=== PATIENT | female | born 1940 | race Caucasian/White ===

== ENCOUNTER 2018-03-16 08:56 | Day surgery (SDC) | payer MEDICARE, OTHER ==
[~2018-03-16 08:56] MED LIST: Acetaminophen TAB* 325 MG PO PRN; Buffered Lidocaine 0.9% SYRIN* 5 ML/SYR SYRINGE INTRADERM ONE
[2018-03-16] MEDS ORDERED: Neomycin/Polymy/Dex OPTH.SUSP* MAXITROL 0.1% 5 ML ONE (09:04)
[2018-03-16] MEDS ORDERED: Cyclopentolate 1% OPTH.SOL* 2 ML BTL ONE (09:04)
[2018-03-16] MEDS ORDERED: Proparacaine 0.5% OPHTH.SOL* 15 ML BTL ONE (09:04)
[2018-03-16] MEDS ORDERED: Lidocaine 1% MPF* 2 ML VIAL ONE (09:04)
[2018-03-16] MEDS ORDERED: acetaZOLAMIDE TAB* 250 MG ONE (09:04)
[2018-03-16] MEDS ORDERED: Lidocaine 2% EPI 1:200000 MPF*10-20 ML VIAL ONE (09:04)
[2018-03-16] MEDS ORDERED: Phenylephrine 2.5% OPTH.SOL* 2 ML BTL ONE (09:04)
[2018-03-16] MEDS ORDERED: Ketorolac 0.5% OPHTH (NF) 0.5 % 5 ML BTL ONE (09:04)
[2018-03-16] MEDS ORDERED: Povidone Iodine 5% OPTH* 30 ML BTL ONE (09:04)
[2018-03-16] MEDS ORDERED: fentaNYL* 50 MCG/ML 2 ML VIAL (100 MCG VIAL) ONE (09:42)
[2018-03-16] MEDS ORDERED: Midazolam* 1 MG/ML 5 ML VIAL (5 MG) ONE (09:42)
[2018-03-16 11:55] VITALS: BP 92/56
--- NOTE | 2018-03-16 12:17 | OP ---
DATE OF OPERATION: 03/16/2018. DATE OF : 1940. SURGEON: Matt Casanova M.D. PREOPERATIVE DIAGNOSIS: Cataract left eye POSTOPERATIVE DIAGNOSIS: Cataract left eye. OPERATIVE PROCEDURE: Extracapsular cataract extraction with intraocular lens implant left eye. PROCEDURE: The patient was brought to the operating room after being given 1/2% Alcaine with epineph rine drops in the preoperative area. The eye was prepped and draped in the usual sterile fashion. S terile drape and eyelid speculum were placed. Again, topical 1/2% Alcaine with epinephrine was given . A paracentesis incision was made at the 3 o'clock position with the No.75 blade. Clear cornea inc ision 2.2 x 2.2-mm was created at the 6 o'clock position starting at the anterior limbus using the 2. 2-mm keratome. The anterior chamber was irrigated with 0.4 mL of 1% non-preservative intracameral li docaine and filled with DisCoVisc. A capsulorrhexis was completed using the cystotome and the Utrata forceps. Hydrodissection was performed with balanced salt solution. The lens nucleus was removed wi th the Phacoemulsification handpiece without incident. Cortex was removed with the irrigation-aspira tion handpiece. The capsular bag was re-inflated using DisCoVisc and an [id number] 22 implant was insert ed with the shooter. The pupil was very small prior to capsulorrhexis. A Malyugin ring was placed a nd removed after insertion of the lens. The irrigation-aspiration handpiece was used to remove all r esidual DisCoVisc. The eye was refilled with balanced salt solution and the wound checked and found to be watertight. Topical Maxitrol drops were given. Indication for complex cataract surgery: Pupil abnormalities requiring iris pupil dilation device. [id number]/[facility] #: [id number]
== END 2018-03-16 11:56 | disposition home or self-care (01) ==
LOC: OREAST 08:56
PROVIDERS: ATTEND Specialist
DX: H25.812 Combined forms of age-related cataract, left eye (principal); H21.562 Pupillary abnormality, left eye; H40.033 Anatomical narrow angle, bilateral; H50.012 Monocular esotropia, left eye; Z87.891 Personal history of nicotine dependence; G43.809 Other migraine, not intractable, without status migrainosus
CPT/HCPCS: A9270-GY; J2250; J3010; V2632

== ENCOUNTER 2018-03-23 06:22 | Day surgery (SDC) | payer MEDICARE, OTHER ==
[2018-03-23] MEDS ORDERED: fentaNYL* 50 MCG/ML 2 ML VIAL (100 MCG VIAL) ONE (07:22)
[2018-03-23] MEDS ORDERED: Midazolam* 1 MG/ML 2 ML VIAL (2 MG) ONE (07:22)
[2018-03-23 08:40] VITALS: BP 103/55
[2018-03-23] MEDS ORDERED: Neomycin/Polymy/Dex OPTH.SUSP* MAXITROL 0.1% 5 ML ONE (12:20)
[2018-03-23] MEDS ORDERED: Lidocaine 2% EPI 1:200000 MPF*10-20 ML VIAL ONE (12:20)
[2018-03-23] MEDS ORDERED: acetaZOLAMIDE TAB* 250 MG ONE (12:20)
[2018-03-23] MEDS ORDERED: Phenylephrine 2.5% OPTH.SOL* 2 ML BTL ONE (12:20)
[2018-03-23] MEDS ORDERED: Ketorolac 0.5% OPHTH (NF) 0.5 % 5 ML BTL ONE (12:20)
[2018-03-23] MEDS ORDERED: Cyclopentolate 1% OPTH.SOL* 2 ML BTL ONE (12:20)
[2018-03-23] MEDS ORDERED: Lidocaine 1% MPF* 2 ML VIAL ONE (12:20)
[2018-03-23] MEDS ORDERED: Povidone Iodine 5% OPTH* 30 ML BTL ONE (12:20)
[2018-03-23] MEDS ORDERED: Proparacaine 0.5% OPHTH.SOL* 15 ML BTL ONE (12:21)
--- NOTE | 2018-03-24 06:16 | OP ---
DATE OF OPERATION: 03/23/18 - [facility] DATE OF : [birth year] SURGEON: Matt Casanova MD PREOPERATIVE DIAGNOSIS: Cataract, right eye. POSTOPERATIVE DIAGNOSIS: Cataract, right eye. OPERATIVE PROCEDURE: Extracapsular cataract extraction with intraocular lens implant, right eye. DESCRIPTION OF PROCEDURE: The patient was brought to the operating room after being given 1/2% Alcaine with epinephrine drops in the preoperative area. The eye was prepped and draped in the usual sterile fashion. Sterile drape and eyelid speculum were placed. Again, topical 1/2% Alcaine with epinephrine was given. A paracentesis incision was made at the 9 o'clock position with the No.75 blade. Clear cornea incision 2.2 x 2.2-mm was created at the 12 o'clock position starting at the anterior limbus using the 2.2-mm keratome. The anterior chamber was irrigated with 0.4 mL of 1% non-preservative intracameral lidocaine and filled with DisCoVisc. A capsulorrhexis was completed using the cystotome and the Utrata forceps. Hydrodissection was performed with balanced salt solution. The lens nucleus was removed with the Phacoemulsification handpiece without incident. Cortex was removed with the irrigation-aspiration handpiece. The capsular bag was re-inflated using DisCoVisc, and an SN60WF 22.5 implant was inserted with the shooter. Pupil was only 2 mm, so a Malyugin ring was used to dilate the pupil prior to capsulorrhexis and removed after insertion of the lens. The irrigation-aspiration handpiece was used to remove all residual DisCoVisc. The eye was refilled with balanced salt solution and the wound checked and found to be watertight. Topical Maxitrol drops were given. Indication for complex cataract surgery: Pupil abnormalities requiring pupil dilation device. [id number]/[facility] #: [id number] [facility]
== END 2018-03-23 08:33 | disposition home or self-care (01) ==
LOC: OREAST 06:22
PROVIDERS: ATTEND Specialist
DX: H25.811 Combined forms of age-related cataract, right eye (principal); H40.033 Anatomical narrow angle, bilateral; H50.012 Monocular esotropia, left eye; Z88.0 Allergy status to penicillin; Z88.2 Allergy status to sulfonamides; Z91.013 Allergy to seafood; E78.00 Pure hypercholesterolemia, unspecified; Z87.891 Personal history of nicotine dependence; H40.003 Preglaucoma, unspecified, bilateral; G43.809 Other migraine, not intractable, without status migrainosus
CPT/HCPCS: A9270-GY; J2250; J3010; V2632

== ENCOUNTER 2018-04-24 14:37 | Emergency (ER) | payer MEDICARE, OTHER ==
[2018-04-24] MEDS ORDERED: Tetan/Diph/Pertus SYR(Tdap)* 0.5 ML SYR(BOOSTRIX) use SYR IM ONE (15:41)
[2018-04-24 16:17] VITALS: BP 112/78
--- OUTSIDE RECORDS SUMMARY | 2018-04-24 16:19 | XMS REPORT ---
:1940 External Reference #:[id number] Author Organization [facility] Address [address] [place] [address] Phone [phone] Care Team Providers Name Role Phone Billy Tadeo [employer] Primary Care Physician Unavailable Payers Type Date Identification Numbers Payment Provider Subscriber Medicare Primary Policy Number: [id number] Medicare - NGS Olivia Pedraza PayID: [id number] [address] [place] [address] Commercial Policy Number: [id number] [facility] & Olivia Pedraza Accident PayID: [id number] [address] [place] [address] Problems Date Description Provider Status Onset: Basal cell carcinoma of skin Active Onset: Gastroesophageal reflux disease Active Onset: Hypercholesterolemia Active Onset: Rheumatoid arthritis Active Onset: Anxiety Active Onset: Depressive disorder Active Onset: Carcinoma of stomach Active Onset: Carcinoma of colon Active Onset: 06/04/2015 Carcinoma of uterus Matt Casanova M.D. Active Onset: 03/24/2018 Presence of intraocular lens Matt Casanova M.D. Active Onset: 02/11/2018 Monocular esotropia Matt Casanova M.D. Active Onset: 09/16/2015 Combined form of senile cataract Matt Casanova M.D. Active Onset: 09/16/2015 Bilateral narrow angle of anterior Matt Casanova M.D. Active chamber of eyes Onset: 06/04/2015 Nuclear senile cataract Matt Casanova M.D. Active Onset: 06/04/2015 Primary angle-closure glaucoma Matt Casanova M.D. Active Onset: 06/04/2015 Refractory migraine Matt Casanova M.D. 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 both eyes Ketorolac 03/11/ Active Solution 0.5% 10ml One drop Matt Carnes Tromethamine 2018 three [place]leo, times a M.D. day right eye, twice a day left eye Prednisolone 03/11/ Active Suspension 1% 15ml One drop Matt Carnes Acetate 2018 three [place]leo, times a M.D. day in the right eye, twice per day in the left eye Aspirin / Active Tablets DR 81mg Unknown 0000 Bupropion HCL / Active Tablets ER 300mg Unknown ER (XL) 0000 24HR Fluoxetine HCL / Active Capsules 10mg Unknown 0000 Magnesium Oxide / Active Capsules 400mg Unknown 0000 Megestrol / Active Suspension 40mg/ml Unknown Acetate 0000 Mirtazapine / Active Tablets 45mg Unknown 0000 Ropinirole HCL / Active Tablets 0.5mg Unknown 0000 Vitamin D-3 / Active Capsules 1000Unit 1 tab Unknown 0000 every day by mouth Vitamin B-12 / Active Tablets Sub 500mcg Unknown 0000 Fentanyl / Active Patches 72HR 12mcg/HR Unknown 0000 Potassium / Active Tablets 75mg Unknown 0000 Ciprofloxacin 03/11/ Hx Solution 0.3% 10unit One drop Matt Carnes HCL 2018 - s right eye Arleo, 04/06/ three M.D. 2018 times per day Pred Forte 06/04/ Hx Suspension 1% 1ml One drop 365.20 Matt Carnes 2014 - Arleo, 08/08/ times a M.D. 2014 day in the treated eye for three days. Omeprazole / Hx Capsules DR 40mg Unknown 2017 Ranitidine HCL 00/ Hx Tablets 150mg Unknown 2017 Bupropion HCL 00/ Hx Tablets ER 150mg Unknown ER (SR) - HR 2017 Ropinirole HCL / Hx Tablets 0.5mg Unknown 2017 Mirtazapine / Hx Tablets 30mg Unknown 2017 Vitamin B-12 / Hx Tablets 1000mcg Unknown 2017 Alprazolam / Hx Tablets 0.25mg Unknown 2017 Multiple 00/ Hx Tablets Unknown Vitamins 2017 Tums /00/ Hx Unknown 2017 Hyoscyamine / Hx Tablets Sub 0.125mg Unknown Sulfate 2017 Results Description No Information Procedures Date CPT Code Description Status 03/23/2018 77277 Cataract Surgery Complex Completed 03/16/2018 89515 Cataract Surgery Complex Completed 03/11/2018 03814 Ophthalmic Biometry Completed 03/11/2018 93984 Ophthalmic Biometry Completed 02/11/2018 47114 Est Patient Comprehensive Exam Completed 12/01/2016 05296 Est Patient Comprehensive Exam Completed 08/05/2015 77792 Iridotomy/Iredectomy By Laser Surgery Completed 07/29/2015 28166 Iridotomy/Iredectomy By Laser Surgery Completed 06/04/2015 20928 Gonioscopy Completed 06/04/2015 43898 Est Patient Comprehensive Exam Completed 05/09/2013 51317 Determination Of Refractive State Completed 05/09/2013 89897 New Patient Comprehensive Exam Completed Encounters Type Date Location Provider CPT E/M Dx Office Visit 03/11/2018 Matt Casanova MD, Matt Casanova, [address]990 H25.812 10:15a lebron Zhang H40.033 H50.012 H25.811 Office Visit 09/16/2015 10:30a Matt Casanova MD, Matt Casanova, [address] H40.033 lebron Zhang H25.813 Plan of Care 04/07/2018 - Matt Casanova M.D.Z96.1 Presence of intraocular lensComments: Smoking can increase the risk of developing or worsening any eye related disease , as well as affect your overall health. If you are a smoker, we strongly recommend that you quit.If you are not a smoker, we strongly recommend that you do not start. The artificial lens implants in both eyes appear to be stable at this time.H50.012 Monocular esotropia, left eyeComments:If you have an increase in double vision, please call the office. If the double vision bothers you,we can refer you to a surgeon.Follow up:2 Year Follow Up You can expect to have your eyes dilated at your next visit. If Dr. Casanova orders any additional testing , it may require extra time. We recommend that you bring sunglasses, as dilationdrops often make you light sensitive until they wear off. We always recommend you bring someone to drive you home if you are uncomfortable driving with your eyes dilated. If you have any questions before your next visit, feel free to call our office at .
--- NOTE | 2018-04-24 16:48 | ED ---
Skin Complaint - HPI Summary HPI Summary: Patient is a 77-year-old who presents emergency department for evaluation after running into a thorn rodriguez just prior to arrival. Patient states she was cutting the grass with her riding lawnmower when she accidentally ran into a thorn rodriguez cutting her face and arms. Patient did not fall and no other injuries were sustained. She is unaware of her last tetanus immunization. Symptoms are mild in severity. Touching wounds makes symptoms worse. Rest makes symptoms better. - History of Current Complaint Chief Complaint: EDLacSutureRecheck Time Seen by Provider: 04/24/18 15:18 Stated Complaint: FACIAL INJURY Hx Obtained From: Patient Pain Intensity: 2 Pain Scale Used: 0-10 Numeric - Additional Pertinent History Primary Care Physician: [id number] - Allergy/Home Medications Allergies/Adverse Reactions: Allergies Allergy/AdvReac Type Severity Reaction Status Date / Time iodine Allergy Unknown Verified 03/23/18 06:36 Reaction Details Penicillins Allergy Rash Verified 03/23/18 06:36 seafood Allergy Severe Nausea And Uncoded 03/23/18 06:36 Vomiting iv contrast Allergy Intermediate Rash And Uncoded 03/23/18 06:36 Itching nuts Allergy Mild Itching Uncoded 03/23/18 06:36 red wine Allergy Mild See Comment Uncoded 03/23/18 06:36 sea plants Allergy Unknown Uncoded 03/23/18 06:36 Reaction Details SULFA DRUGS Allergy Swelling Uncoded 03/23/18 06:36 PMH/Surg Hx/FS Hx/Imm Hx Previously Healthy: Yes Endocrine/Hematology History: Reports: Hx Anemia - CURRENT PER PT Denies: Hx Diabetes Cardiovascular History: Denies: Hx Congestive Heart Failure, Hx Hypertension, Hx Pacemaker/ICD GI History: Reports: Hx Gastroesophageal Reflux Disease, Other GI Disorders - HX GASTRIC CA 2009, COLON CA 1994, OVARIAN AND UTERIN CA History: Reports: Hx Kidney Stones - STATES CURRENTLY Denies: Hx Renal Disease Musculoskeletal History: Reports: Hx Arthritis - RA, Hx Rheumatoid Arthritis, Hx Back Problems - Hx of compression fractures lumbar spine, Hx Osteoporosis, Other Musculoskeletal History - COMPRESSION FX TO VERTEBRAE PER PT Sensory History: Reports: Hx Cataracts - BILAT, Hx Contacts or Glasses Denies: Hx Hearing Aid Opthamlomology History: Reports: Hx Cataracts - BILAT, Hx Contacts or Glasses Neurological History: Reports: Hx Migraine - A TEEN Psychiatric History: Reports: Hx Anxiety - PRN MEDS, Hx Depression Denies: Hx Panic Disorder - Cancer History Cancer Type, Location and Year: colon, uterine, ovarian, skin, stomach Hx Chemotherapy: Yes Hx Radiation Therapy: Yes - Surgical History Surgery Procedure, Year, and Place: hysterectomy 1985; appendectomy 1985; colon resection; partial gastrectomy; cholecystectomy, partial colon resection 2014- EXTERNAL CANCER ON HANDS/FACE REMOVED, APPENDECTOMY, stomach - pt states 3/4 removed Hx Anesthesia Reactions: No Infectious Disease History: No Infectious Disease History: Reports: Hx Hepatitis - BALAJI BERRY- AGE 13 Denies: History Other Infectious Disease, Traveled Outside the [place] in Last 30 Days - Social History Occupation: Retired Lives: Alone Alcohol Use: Rare Alcohol Amount: 1 drink daily Substance Use Type: Reports: None Smoking Status (MU): Former Smoker Amount Used/How Often: 1 PPD Length of Time of Smoking/Using Tobacco: OFF AND ON FOR 25 YRS Have You Smoked in the Last Year: No Review of Systems Positive: Other - Wounds to face and arms All Other Systems Reviewed And Are Negative: Yes Physical Exam Triage Information Reviewed: Yes Vital Signs On Initial Exam: Initial Vitals Temp Pulse Resp BP Pulse Ox 99.2 F 98 17 96/74 98 04/24/18 14:45 04/24/18 14:45 04/24/18 14:45 04/24/18 14:45 04/24/18 14:45 Vital Signs Reviewed: Yes Appearance: Positive: Well-Appearing - Pt. sitting on bed in NAD. Skin: Positive: Warm, Dry, Other - Small skin tear noted to the right forearm. Less than 1 cm superficial laceration noted to the right lower lip. It is well approximated. Superficial abrasion to the oromucosa of the right upper lip. Superficial abrasion noted along the right side of the face. Small abrasion to the left side of neck. No foreign body notified. Eyes: Positive: Normal Neck: Positive: Supple Neurological: Positive: Normal, CN Intact II-III Psychiatric: Positive: Affect/Mood Appropriate Diagnostics - Vital Signs Vital Signs Temp Pulse Resp BP Pulse Ox 04/24/18 16:16 98.7 F 67 16 112/78 99 04/24/18 14:45 99.2 F 98 17 96/74 98 - Laboratory Lab Statement: Any lab studies that have been ordered have been reviewed, and results considered in the medical decision making process. Course/Dx - Course Course Of Treatment: Patient presenting for wound care after sustaining numerous , small, superficial abrasions to face and arms. Tetanus was updated. Wounds were irrigated and cleaned. Advised patient to keep wounds clean and dry. To follow-up with PCP for wound check in 2-3 days. To return to the ER for redness , swelling or drainage from wounds. - Diagnoses Provider Diagnoses: Abrasion Discharge - Sign-Out/Discharge Documenting (check all that apply): Discharge/Admit/Transfer - Discharge Plan Condition: Good Disposition: HOME Patient Education Materials: Lidocaine (On the skin), Acute Wound Care (ED) Referrals: Billy Tadeo RN TRAUMA [Primary Care Provider] - Additional Instructions: Follow up with PCP in 2-3 days for a wound check Keep wounds clean and dry Return to ER for redness, swelling or drainage from wounds - Billing Disposition and Condition Condition: GOOD Disposition: Home
== END 2018-04-24 16:16 | disposition home or self-care (01) ==
LOC: ED 14:37
DX: S40.812A Abrasion of left upper arm, initial encounter (principal); S40.811A Abrasion of right upper arm, initial encounter; S00.81XA Abrasion of other part of head, initial encounter; W26.9XXA Contact with unspecified sharp object(s), initial encounter; Y93.9 Activity, unspecified; Y92.9 Unspecified place or not applicable
CPT/HCPCS: 90471; 90715; 99283

== ENCOUNTER → 2018-06-13 10:14 | Day surgery (SDC) | payer MEDICARE ==
[~2018-06-13 10:14] MED LIST changes: -Buffered Lidocaine 0.9% SYRIN* 5 ML/SYR SYRINGE INTRADERM ONE; +Diazepam TAB(*) 5 MG ONE; +HEPARIN 2 UNIT/ML IV ONE; +Iodixanol* (CONTRAST) 320 MG/ML 100 ML SDV ONE; +Lidocaine 1%* 5 ML VIAL ONE; +Midazolam* 1 MG/ML 10 ML VIAL (10 MG) ONE; +NS 0.9% 1000 ML* 1,000 ML IV SCH; +diPHENhydraMINE PO* 25 MG ONE; +fentaNYL* 50 MCG/ML 2 ML VIAL (100 MCG VIAL) ONE
[2018-06-13 11:18] LABS: ABS Basophils 0 10^3/ul (0-0.2); ABS Eosinophils 0 10^3/ul (0-0.6); ABS Lymphocytes 0.8 10^3/ul (1.0-4.8); ABS Monocytes 0.7 10^3/ul (0-0.8); ABS Neutrophils 10.2 10^3/ul (1.5-7.7); ABS Nucleated RBC 0 10^3/ul; Eosinophil % 0 % (0-6); Hematocrit 27 % (35-47); Hemoglobin 8.9 g/dl (12.0-16.0); Lymphocyte % 6.9 % (25-47); Mean Corpuscular HGB Conc 33 g/dl (31-36); Mean Corpuscular Hemoglobin 30 pg (27-31); Mean Corpuscular Volume 90 fL (80-97); Mean Platelet Volume 7.5 um3 (7.4-10.4); Nucleated Red Blood Cells % 0; Platelet Count 329 10^3/ul (150-450); Red Blood Count 2.98 10^6/ul (4.00-5.40); Red Cell Distribution Width 14 % (10.5-15); White Blood Count 11.7 10^3/ul (3.5-10.8)
[2018-06-13 11:45] LABS: EGFR Non-African American 34.1 (>60)
[2018-06-13 16:07] VITALS: BP 115/78
--- NOTE | 2018-06-14 13:15 | CATH ---
CC: Dr. Elvin Albarado * CARDIAC CATHETERIZATION: DATE OF PROCEDURE: 06/13/18 PROCEDURE: Right heart catheterization, left heart catheterization, coronary angiography. INDICATION: Aortic stenosis. HISTORY: The patient is a 77-year-old female with fatigue and moderate to severe aortic stenosis on echocardiogram. Cardiac catheterization was recommended for further evaluation of aortic valve and coronary arteries. DESCRIPTION OF PROCEDURE: The patient was brought to the cardiac catheterization lab in a fasting state. Informed consent had been obtained prior to the procedure. All labs were reviewed. The patient was placed supine on the catheterization table. Both her femoral areas were cleaned and draped in the usual fashion. The patient could not have a right radial heart catheterization due to small radial artery. The femoral vein was entered by a modified Seldinger technique and an 8- [place] sheath introducer was placed. The patient underwent right heart catheterization. The right femoral artery was entered by a modified Seldinger technique and a 6-[place] sheath was placed. The patient underwent coronary angiography and left ventriculogram using a 6- [place] pigtail catheter, 6-[place] JL4 catheter, 6-[place] JR4 catheter. At the end of the procedure, all sheaths and caths were removed. The patient tolerated the procedure well with no complications. A total of 3.9 minutes of fluoro time was used, a total of 65 cc of Omnipaque dye was used. FINDINGS: 1. Hemodynamics: Right atrial pressure with a mean of 5. Right ventricular pressure 28/4. Pulmonary capillary wedge pressure of 16. Pulmonary artery pressure 26/15. Central aortic pressure 123/61 with a mean of 90. Left ventricular pressure 138/3 with an end-diastolic pressure of 17. Cardiac output by Sandra 3.5 L per minute. Cardiac output by thermodilution was 3.8 L per minute. Oxygen saturation, right atrial saturation 66%, pulmonary artery saturation 61%, central aortic saturation 99%. Aortic valve calculation comparing left ventricle to central aortic pressure mean gradient of 12 mmHg. Calculated valve area was 0.94. Calculated aortic valve area by indexed body surface area 0.73 centimeter squared. 2. Left ventriculogram: Left ventricle was normal in size. Overall systolic function of the left ventricle appeared mildly reduced. Estimated ejection fraction 45% to 50%. There was global hypokinesis. There was no mitral regurgitation. Aortic valve and ascending aorta appeared normal. Coronary arteries: 1. Left main. Left main was normal in size. It bifurcated into the LAD and circumflex. There was no evidence of stenosis. There was mild calcification of the left main, proximal LAD, and proximal circumflex. 2. Left anterior descending artery. The LAD was normal in size. It gave off 2 diagonal vessels. The LAD itself had mild calcification in the proximal vessel, but no significant coronary artery disease. D1 vessel of the LAD was normal. D2 vessel of the LAD had proximal 50% stenosis. 3. Left circumflex artery. The circumflex artery was normal in size. It gave off 2 obtuse marginal branches. There was no evidence of stenosis. 4. Right coronary artery. The RCA was a dominant vessel. It gave off the PDA. There was no evidence of stenosis. IMPRESSION: 1. No evidence of pulmonary hypertension. 2. Moderate to severe aortic stenosis with a calculated valve area of 0.9 centimeter squared. 3. No significant coronary artery disease. RECOMMENDATION: The patient will continue on maximum medical therapy. The patient will follow up with Dr. Albarado regarding further cardiac care. [id number]/[facility] #: [id number] LINDA
== END | disposition home or self-care (01) ==
LOC: CHICATH 10:14
PROVIDERS: ATTEND Specialist
DX: I35.0 Nonrheumatic aortic (valve) stenosis (principal); R53.82 Chronic fatigue, unspecified; R07.9 Chest pain, unspecified; I49.3 Ventricular premature depolarization; I65.29 Occlusion and stenosis of unspecified carotid artery; M81.0 Age-related osteoporosis without current pathological fracture; M06.9 Rheumatoid arthritis, unspecified; Z85.43 Personal history of malignant neoplasm of ovary; Z85.038 Personal history of other malignant neoplasm of large intestine; Z85.42 Personal history of malignant neoplasm of other parts of uterus; Z85.028 Personal history of other malignant neoplasm of stomach; Z87.891 Personal history of nicotine dependence; D64.9 Anemia, unspecified; Z85.828 Personal history of other malignant neoplasm of skin
CPT/HCPCS: 36415; 80053; 82803; 85025; 93460; 99156; 99157; A9270-GY; C1887; J1644; J2250; J3010

== ENCOUNTER 2018-12-19 09:59 | Inpatient (IN) | payer MEDICARE, OTHER ==
[2018-12-19] MEDS ORDERED: Bisacodyl SUPP* 10 MG SUPP PR PRN (15:51)
[2018-12-19] MEDS ORDERED: Mirtazapine TAB* 15 MG PO PRN (16:07)
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
[2018-12-19] MEDS ORDERED: Metoprolol Tartrate TAB* 25 MG PO SCH (21:00)
[2018-12-19] MEDS: Metoprolol Tartrate TAB* 25 MG PO SCH (21:48)
[2018-12-19] MEDS: Docusate CAP* 100 MG PO SCH (21:57)
[2018-12-19] MEDS: Ropinirole TAB* 0.5 MG TAB PO SCH (21:57)
[2018-12-20 05:09] LABS: ABS Basophils 0 10^3/ul (0-0.2); ABS Eosinophils 0.2 10^3/ul (0-0.6); ABS Lymphocytes 0.8 10^3/ul (1.0-4.8); ABS Monocytes 0.4 10^3/ul (0-0.8); ABS Neutrophils 3.9 10^3/ul (1.5-7.7); ABS Nucleated RBC 0 10^3/ul; Eosinophil % 3.8 %; Hematocrit 28 % (35-47); Hemoglobin 9.3 g/dl (12.0-16.0); Lymphocyte % 14.3 %; Mean Corpuscular HGB Conc 33 g/dl (31-36); Mean Corpuscular Hemoglobin 33 pg (27-31); Mean Corpuscular Volume 99 fL (80-97); Mean Platelet Volume 8.2 fL (7.4-10.4); Nucleated Red Blood Cells % 0.1; Platelet Count 243 10^3/ul (150-450); Red Blood Count 2.84 10^6/ul (4.00-5.40); Red Cell Distribution Width 13 % (10.5-15); White Blood Count 5.3 10^3/ul (3.5-10.8)
[2018-12-20] MEDS ORDERED: Enoxaparin(*) 40 MG/0.4 ML SYR SUBCUT SCH (09:00)
[2018-12-20] MEDS: oxyCODONE TAB* 5 MG TAB PO PRN ×4 (09:09→21:43)
[2018-12-20] MEDS: Docusate CAP* 100 MG PO SCH ×2 (10:16→21:41)
[2018-12-20] MEDS: FLUoxetine CAP* 10 MG PO SCH (10:27)
[2018-12-20] MEDS: Magnesium Oxide TAB* 400 MG PO SCH (10:27)
[2018-12-20] MEDS: Famotidine TAB* 20 MG PO SCH (10:27)
[2018-12-20] MEDS: Metoprolol Tartrate TAB* 25 MG PO SCH ×2 (10:38→21:42)
[2018-12-20] MEDS: Acetaminophen TAB* 325 MG PO PRN (11:23)
[2018-12-20] MEDS ORDERED: Enoxaparin(*) 30 MG/0.3 ML SYR SUBCUT SCH (12:30)
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
[2018-12-20] MEDS: Enoxaparin(*) 30 MG/0.3 ML SYR SUBCUT SCH (14:37)
[2018-12-20] MEDS: Atorvastatin* 40 MG TAB PO SCH (17:18)
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
[2018-12-20] MEDS: Ropinirole TAB* 0.5 MG TAB PO SCH (21:49)
[2018-12-21] MEDS: oxyCODONE TAB* 5 MG TAB PO PRN ×5 (04:20→21:20)
[2018-12-21 07:29] LABS: ABS Basophils 0 10^3/ul (0-0.2); ABS Eosinophils 0.3 10^3/ul (0-0.6); ABS Lymphocytes 1.1 10^3/ul (1.0-4.8); ABS Monocytes 0.5 10^3/ul (0-0.8); ABS Neutrophils 3.6 10^3/ul (1.5-7.7); ABS Nucleated RBC 0 10^3/ul; Eosinophil % 4.7 %; Hematocrit 28 % (35-47); Hemoglobin 9.2 g/dl (12.0-16.0); Lymphocyte % 19.2 %; Mean Corpuscular HGB Conc 33 g/dl (31-36); Mean Corpuscular Hemoglobin 32 pg (27-31); Mean Corpuscular Volume 98 fL (80-97); Mean Platelet Volume 8.2 fL (7.4-10.4); Nucleated Red Blood Cells % 0; Platelet Count 264 10^3/ul (150-450); Red Blood Count 2.88 10^6/ul (4.00-5.40); Red Cell Distribution Width 13 % (10.5-15); White Blood Count 5.5 10^3/ul (3.5-10.8)
[2018-12-21 07:48] LABS: Albumin 2.5 g/dL (3.2-5.2); BUN/Creatinine Ratio 18.3 (8-20); Calcium 8.3 mg/dL (8.6-10.3); EGFR African American 81.6 (>60); EGFR Non-African American 67.4 (>60); Globulin 2.5 g/dL (2-4); Potassium 3.6 mmol/L (3.5-5.0); Total Bilirubin 0.4 mg/dL (0.2-1.0)
[2018-12-21] MEDS: Acetaminophen TAB* 325 MG PO PRN (08:05)
[2018-12-21] MEDS: Metoprolol Tartrate TAB* 25 MG PO SCH ×2 (08:54→21:22)
[2018-12-21] MEDS: Magnesium Oxide TAB* 400 MG PO SCH (08:54)
[2018-12-21] MEDS: FLUoxetine CAP* 10 MG PO SCH (08:54)
[2018-12-21] MEDS: Famotidine TAB* 20 MG PO SCH (08:54)
[2018-12-21] MEDS: Docusate CAP* 100 MG PO SCH ×2 (09:05→20:45)
[2018-12-21] MEDS: Enoxaparin(*) 30 MG/0.3 ML SYR SUBCUT SCH (14:09)
[2018-12-21] MEDS: Atorvastatin* 40 MG TAB PO SCH (17:14)
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
[2018-12-21] MEDS: Ropinirole TAB* 0.5 MG TAB PO SCH (21:21)
[2018-12-22] MEDS: oxyCODONE TAB* 5 MG TAB PO PRN ×6 (01:36→20:57)
[2018-12-22] MEDS: FLUoxetine CAP* 10 MG PO SCH (09:03)
[2018-12-22] MEDS: Famotidine TAB* 20 MG PO SCH ×2 (09:03→20:50)
[2018-12-22] MEDS: Magnesium Oxide TAB* 400 MG PO SCH (09:03)
[2018-12-22] MEDS: Metoprolol Tartrate TAB* 25 MG PO SCH ×2 (09:03→20:49)
[2018-12-22] MEDS: Docusate CAP* 100 MG PO SCH ×2 (09:05→21:01)
[2018-12-22] MEDS ORDERED: oxyCODONE TAB* 5 MG TAB ONE (13:04)
[2018-12-22] MEDS: Enoxaparin(*) 30 MG/0.3 ML SYR SUBCUT SCH (13:12)
[2018-12-22] MEDS: Atorvastatin* 40 MG TAB PO SCH (16:56)
[2018-12-22] MEDS ORDERED: Calcium Carbonate CHEW TAB* 500 MG (TUMS) PO PRN (18:47)
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
[2018-12-22] MEDS: Ropinirole TAB* 0.5 MG TAB PO SCH (20:49)
[2018-12-23] MEDS: oxyCODONE TAB* 5 MG TAB PO PRN ×8 (00:14→23:30)
[2018-12-23] MEDS: Docusate CAP* 100 MG PO SCH ×3 (08:09→20:25)
[2018-12-23] MEDS: Acetaminophen TAB* 325 MG PO PRN (08:29)
[2018-12-23] MEDS: FLUoxetine CAP* 10 MG PO SCH (08:29)
[2018-12-23] MEDS: Magnesium Oxide TAB* 400 MG PO SCH (08:29)
[2018-12-23] MEDS: Metoprolol Tartrate TAB* 25 MG PO SCH ×2 (08:30→20:26)
[2018-12-23] MEDS: Famotidine TAB* 20 MG PO SCH ×2 (08:30→20:27)
[2018-12-23] MEDS: Enoxaparin(*) 30 MG/0.3 ML SYR SUBCUT SCH (13:54)
[2018-12-23] MEDS: Atorvastatin* 40 MG TAB PO SCH (17:43)
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
[2018-12-23] MEDS: Senna TAB PO PRN (20:26)
[2018-12-23] MEDS: Ropinirole TAB* 0.5 MG TAB PO SCH (20:27)
[2018-12-24] MEDS: oxyCODONE TAB* 5 MG TAB PO PRN ×4 (03:31→17:20)
[2018-12-24] MEDS: Acetaminophen TAB* 325 MG PO PRN (07:47)
[2018-12-24] MEDS: Metoprolol Tartrate TAB* 25 MG PO SCH ×2 (09:28→20:19)
[2018-12-24] MEDS: FLUoxetine CAP* 10 MG PO SCH (09:28)
[2018-12-24] MEDS: Docusate CAP* 100 MG PO SCH ×2 (09:28→20:21)
[2018-12-24] MEDS: Magnesium Oxide TAB* 400 MG PO SCH (09:28)
[2018-12-24] MEDS: Famotidine TAB* 20 MG PO SCH ×2 (09:29→20:18)
[2018-12-24] MEDS: Enoxaparin(*) 30 MG/0.3 ML SYR SUBCUT SCH (14:20)
[2018-12-24] MEDS: Atorvastatin* 40 MG TAB PO SCH (17:20)
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
[2018-12-24] MEDS: Ropinirole TAB* 0.5 MG TAB PO SCH (20:18)
[2018-12-25] MEDS: oxyCODONE TAB* 5 MG TAB PO PRN ×7 (00:07→21:34)
[2018-12-25] MEDS: Magnesium Oxide TAB* 400 MG PO SCH (07:54)
[2018-12-25] MEDS: Famotidine TAB* 20 MG PO SCH ×2 (07:54→21:33)
[2018-12-25] MEDS: Metoprolol Tartrate TAB* 25 MG PO SCH ×2 (07:54→21:35)
[2018-12-25] MEDS: FLUoxetine CAP* 10 MG PO SCH (07:55)
[2018-12-25] MEDS: Docusate CAP* 100 MG PO SCH ×2 (07:55→21:33)
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
[2018-12-25] MEDS: Enoxaparin(*) 30 MG/0.3 ML SYR SUBCUT SCH (14:45)
[2018-12-25] MEDS: Atorvastatin* 40 MG TAB PO SCH (17:42)
[2018-12-25] MEDS: Ropinirole TAB* 0.5 MG TAB PO SCH (21:33)
[2018-12-26] MEDS: oxyCODONE TAB* 5 MG TAB PO PRN ×5 (04:27→20:24)
[2018-12-26] MEDS: Docusate CAP* 100 MG PO SCH ×2 (07:32→20:36)
[2018-12-26] MEDS: Magnesium Oxide TAB* 400 MG PO SCH (07:32)
[2018-12-26] MEDS: FLUoxetine CAP* 10 MG PO SCH (07:32)
[2018-12-26] MEDS: Metoprolol Tartrate TAB* 25 MG PO SCH ×2 (07:33→20:36)
[2018-12-26] MEDS: Famotidine TAB* 20 MG PO SCH ×2 (07:33→20:24)
[2018-12-26] MEDS: Acetaminophen TAB* 325 MG PO PRN ×2 (09:23→19:40)
[2018-12-26] MEDS: Enoxaparin(*) 30 MG/0.3 ML SYR SUBCUT SCH (14:31)
[2018-12-26] MEDS: Atorvastatin* 40 MG TAB PO SCH (16:54)
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
[2018-12-26] MEDS: Ropinirole TAB* 0.5 MG TAB PO SCH (20:24)
[2018-12-27] MEDS: oxyCODONE TAB* 5 MG TAB PO PRN ×6 (00:31→19:43)
[2018-12-27] MEDS: FLUoxetine CAP* 10 MG PO SCH (09:08)
[2018-12-27] MEDS: Docusate CAP* 100 MG PO SCH ×2 (09:08→20:53)
[2018-12-27] MEDS: Magnesium Oxide TAB* 400 MG PO SCH (09:08)
[2018-12-27] MEDS: Famotidine TAB* 20 MG PO SCH ×2 (09:08→20:59)
[2018-12-27] MEDS: Metoprolol Tartrate TAB* 25 MG PO SCH ×2 (09:09→20:53)
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
[2018-12-27] MEDS: Enoxaparin(*) 30 MG/0.3 ML SYR SUBCUT SCH (14:08)
[2018-12-27] MEDS: Atorvastatin* 40 MG TAB PO SCH (16:18)
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
[2018-12-27] MEDS: Ropinirole TAB* 0.5 MG TAB PO SCH (20:58)
[2018-12-28] MEDS: oxyCODONE TAB* 5 MG TAB PO PRN ×3 (01:08→08:16)
[2018-12-28 04:59] LABS: ABS Basophils 0 10^3/ul (0-0.2); ABS Eosinophils 0.2 10^3/ul (0-0.6); ABS Lymphocytes 1.3 10^3/ul (1.0-4.8); ABS Monocytes 0.7 10^3/ul (0-0.8); ABS Nucleated RBC 0 10^3/ul; Eosinophil % 3.2 %; Hematocrit 33 % (35-47); Hemoglobin 10.5 g/dl (12.0-16.0); Lymphocyte % 18.2 %; Mean Corpuscular HGB Conc 32 g/dl (31-36); Mean Corpuscular Hemoglobin 32 pg (27-31); Mean Corpuscular Volume 99 fL (80-97); Mean Platelet Volume 7.2 fL (7.4-10.4); Nucleated Red Blood Cells % 0; Platelet Count 669 10^3/ul (150-450); Red Cell Distribution Width 13 % (10.5-15); White Blood Count 7.3 10^3/ul (3.5-10.8)
[2018-12-28 05:17] LABS: Albumin 3.3 g/dL (3.2-5.2); Albumin/Globulin Ratio 1.2 (1-3); BUN/Creatinine Ratio 18.5 (8-20); Calcium 8.9 mg/dL (8.6-10.3); EGFR African American 82.5 (>60); EGFR Non-African American 68.2 (>60); Globulin 2.8 g/dL (2-4); Potassium 3.7 mmol/L (3.5-5.0); Total Bilirubin 0.4 mg/dL (0.2-1.0); Total Protein 6.1 g/dL (6.4-8.9)
[2018-12-28] MEDS: Famotidine TAB* 20 MG PO SCH ×2 (08:14→21:48)
[2018-12-28] MEDS: Magnesium Oxide TAB* 400 MG PO SCH (08:15)
[2018-12-28] MEDS: Docusate CAP* 100 MG PO SCH ×2 (08:15→20:11)
[2018-12-28] MEDS: FLUoxetine CAP* 10 MG PO SCH (08:16)
[2018-12-28] MEDS: Metoprolol Tartrate TAB* 25 MG PO SCH ×2 (10:11→20:18)
[2018-12-28] MEDS: Acetaminophen TAB* 325 MG PO PRN (13:27)
[2018-12-28] MEDS: Enoxaparin(*) 30 MG/0.3 ML SYR SUBCUT SCH (14:06)
[2018-12-28] MEDS: Atorvastatin* 40 MG TAB PO SCH (17:45)
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
[2018-12-28] MEDS: Ropinirole TAB* 0.5 MG TAB PO SCH (21:48)
[2018-12-29] MEDS: oxyCODONE TAB* 5 MG TAB PO PRN ×3 (03:21→21:31)
[2018-12-29] MEDS: Famotidine TAB* 20 MG PO SCH ×2 (07:45→21:30)
[2018-12-29] MEDS: FLUoxetine CAP* 10 MG PO SCH (07:47)
[2018-12-29] MEDS: Magnesium Oxide TAB* 400 MG PO SCH (07:47)
[2018-12-29] MEDS: Metoprolol Tartrate TAB* 25 MG PO SCH ×2 (07:52→21:30)
[2018-12-29] MEDS: Docusate CAP* 100 MG PO SCH ×2 (07:54→21:30)
[2018-12-29] MEDS: Acetaminophen TAB* 325 MG PO PRN (14:11)
[2018-12-29] MEDS: Enoxaparin(*) 30 MG/0.3 ML SYR SUBCUT SCH (14:11)
[2018-12-29] MEDS: Atorvastatin* 40 MG TAB PO SCH (17:39)
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
[2018-12-29] MEDS: Ropinirole TAB* 0.5 MG TAB PO SCH (21:32)
[2018-12-30] MEDS: Docusate CAP* 100 MG PO SCH ×2 (08:53→21:43)
[2018-12-30] MEDS: oxyCODONE TAB* 5 MG TAB PO PRN ×3 (08:57→17:25)
[2018-12-30] MEDS: Metoprolol Tartrate TAB* 25 MG PO SCH ×2 (08:57→22:18)
[2018-12-30] MEDS: FLUoxetine CAP* 10 MG PO SCH (08:57)
[2018-12-30] MEDS: Famotidine TAB* 20 MG PO SCH ×2 (08:58→22:19)
[2018-12-30] MEDS: Magnesium Oxide TAB* 400 MG PO SCH (08:58)
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
[2018-12-30] MEDS: Enoxaparin(*) 30 MG/0.3 ML SYR SUBCUT SCH (13:50)
[2018-12-30] MEDS: Atorvastatin* 40 MG TAB PO SCH (17:06)
[2018-12-30] MEDS ORDERED: diPHENhydraMINE PO* 25 MG PO PRN (17:49)
[2018-12-30] MEDS: Ropinirole TAB* 0.5 MG TAB PO SCH (22:19)
[2018-12-31] MEDS: oxyCODONE TAB* 5 MG TAB PO PRN ×4 (05:35→23:54)
[2018-12-31] MEDS ORDERED: Loperamide CAP* 2 MG PO PRN (07:09)
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
[2018-12-31] MEDS: Metoprolol Tartrate TAB* 25 MG PO SCH ×2 (09:09→20:06)
[2018-12-31] MEDS: FLUoxetine CAP* 10 MG PO SCH (09:16)
[2018-12-31] MEDS: Famotidine TAB* 20 MG PO SCH ×2 (09:16→20:00)
[2018-12-31] MEDS: Magnesium Oxide TAB* 400 MG PO SCH (09:17)
[2018-12-31] MEDS: Enoxaparin(*) 30 MG/0.3 ML SYR SUBCUT SCH (13:15)
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
[2018-12-31] MEDS: Atorvastatin* 40 MG TAB PO SCH (16:52)
[2018-12-31] MEDS: Ropinirole TAB* 0.5 MG TAB PO SCH (20:00)
[2019-01-01] MEDS: oxyCODONE TAB* 5 MG TAB PO PRN ×5 (04:33→21:52)
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
[2019-01-01] MEDS: Metoprolol Tartrate TAB* 25 MG PO SCH ×2 (08:22→21:46)
[2019-01-01] MEDS: Famotidine TAB* 20 MG PO SCH ×2 (08:24→21:51)
[2019-01-01] MEDS: FLUoxetine CAP* 10 MG PO SCH (08:24)
[2019-01-01] MEDS: Magnesium Oxide TAB* 400 MG PO SCH (08:24)
[2019-01-01] MEDS: Enoxaparin(*) 30 MG/0.3 ML SYR SUBCUT SCH (14:19)
[2019-01-01] MEDS: Atorvastatin* 40 MG TAB PO SCH (17:16)
[2019-01-01] MEDS: Ropinirole TAB* 0.5 MG TAB PO SCH (21:52)
[2019-01-02] MEDS: oxyCODONE TAB* 5 MG TAB PO PRN ×4 (02:44→19:28)
[2019-01-02] MEDS: Metoprolol Tartrate TAB* 25 MG PO SCH ×2 (09:06→21:41)
[2019-01-02] MEDS: Acetaminophen TAB* 325 MG PO PRN (09:27)
[2019-01-02] MEDS: Magnesium Oxide TAB* 400 MG PO SCH (09:28)
[2019-01-02] MEDS: FLUoxetine CAP* 10 MG PO SCH (09:29)
[2019-01-02] MEDS: Famotidine TAB* 20 MG PO SCH ×2 (09:29→21:40)
[2019-01-02] MEDS: Docusate CAP* 100 MG PO PRN (09:57)
[2019-01-02] MEDS: Ondansetron ODT TAB* 4 MG SL PRN (10:25)
[2019-01-02] MEDS: Enoxaparin(*) 30 MG/0.3 ML SYR SUBCUT SCH (14:05)
[2019-01-02] MEDS: Atorvastatin* 40 MG TAB PO SCH (17:10)
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
[2019-01-02] MEDS: Ropinirole TAB* 0.5 MG TAB PO SCH (21:40)
[2019-01-03] MEDS: oxyCODONE TAB* 5 MG TAB PO PRN ×5 (02:54→20:45)
[2019-01-03] MEDS: FLUoxetine CAP* 10 MG PO SCH (08:26)
[2019-01-03] MEDS: Metoprolol Tartrate TAB* 25 MG PO SCH ×2 (08:26→21:08)
[2019-01-03] MEDS: Famotidine TAB* 20 MG PO SCH ×2 (08:26→20:46)
[2019-01-03] MEDS: Magnesium Oxide TAB* 400 MG PO SCH (08:26)
--- NOTE | 2019-01-03 12:49 | PMRUTEAM ---
PMRU: Team Meeting Current Status: Nursing: Current Status Skin Deviations [L clavicle] Other Skin Deviations [adjacent to Abrasion,Other thoracic vert] Skin Deviations [Back] Other Skin Deviations [Bilateral Other Heel] Skin Deviations [Coccyx] Other Skin Deviations [Left Lower Abrasion Anterior Leg] Skin Deviations [Left Lateral Other Foot] Skin Deviation Description [L sling in place clavicle] Skin Deviation Description [ Red, blanching, superficial abrasion adjacent to thoracic vert] Skin Deviation Description [ gauze intact to back Back] Skin Deviation Description [ slightly pink; heels floated Bilateral Heel] Skin Deviation Description [ slightly reddened, blanchable Coccyx] Skin Deviation Description [ optifoam intact Left Lower Anterior Leg] Skin Deviation Description [ cast intact Left Lateral Foot] Bladder Current Status occasionally incontinent Bowel Current Status colace given Nutrition Current Status appetite good Medication Current Status oxycodone for pain Physical Therapy: Current Status Bed Mobility Assistance Supervision Transfer Mobility Assistance Contact Guard Assist Transfer/Bed Mobility Railings Recommended Devices Transfer Mobility Comment Pt. a bit unstedy with transfer. Needs cg x 1 working towards S x 1. Ambulation Assistance Not Tested Ambulation Assistive Devices Rolling Walker Number of Feet Patient 200' Ambulated Ambulation Comment LOB x 2 step thru gait with SBQC. Pt. needed help to regain balance min A . Stairs Assistance Not Tested Stairs Recommended Devices Two Rails Number of Stairs 5 Curb Not Tested Objective Comments pre-gait: L foot forward/ backward step x 10 transfers: sit to stand x 5 from elevated surface, x 5 from w/c with UE pushoff and cues for R LE WBing and anterior w/s Occupational Therapy: Current Status Upper Body Dressing Supervision Lower Body Dressing Contact Guard Assist Bathing Contact Guard Assist Toileting Contact Guard Assist Toilet Transfer Contact Guard Assist,Min Assist Shower Transfer Contact Guard Assist,Min Assist Eating Supervision Rec Therapy: Current Status Summary of Assessment and Pt. has been engaged in leisure activities while Clinical Impression on the unit - playing cards with staff and engaging in leisure activities independently on her etienne. Treatment Goals Pt. will engage in leisure while on the unit. Treatment Plan Provide RT services and encourage involvement. Social Work: Current Status Discharge Plan return home with home care svs and family support Potential for Family Training TBD (pt lives alone) Anticipated Discharge Home Destination Discharge With home care svs and family support Nutrition: Current Status Monitoring PO intake continues to vary, but still avg ~50% of meals in past week (range 15-100%). Regular BMs per stool record; last BM 12/31. Labs 12/28 reviewed ; none sig. Open area to back continues. Speech: Current Status Assessment Patient met short and assisted goals, and demonstrated the ability use conversational repair strategies, as instructed, to cooperatively find words in structured conversation, and recall those words after delay, with 100% accuracy, given extra time. Discharge speech-language therapy. Speech Current Status Goal 1 7 Goals: Physical Therapy: Initial Goals Bed Mobility Assistance Independent Transfer Mobility Assistance Independent Transfer/Bed Mobility Small Base Quad Cane Recommended Devices Ambulation Independent Ambulation Recommended Devices Small Base Quad Cane Ambulation Distance 150 Stairs Assistance Independent Stair Recommended Devices Quad Cane,One Rail Number of Stairs 6 Home Exercise Program Independent Assistance Physical Therapy: Updated Goals Bed Mobility Assistance Independent Transfer Mobility Assistance Independent Transfer/Bed Mobility Small Base Quad Cane Recommended Devices Ambulation Assistance Independent Ambulation Assistive Devices Small Base Quad Cane Wheelchair Distance (ft) 100' Stairs Assistance Independent Stairs Recommended Devices One Rail Number of Stairs 2 x 5 Occupational Therapy: Initial Goals Goals to be Completed in (Days 3-4 weeks ) Upper Body Bathing Routine Supervision/Set Up Lower Body Bathing Routine Supervision/Set Up Upper Body Dressing Routine Independent Lower Body Dressing Routine Modified Independent with Toilet Hygeine and Clothing Modified Independent with Management Routine Toilet Transfer Routine Modified Independent with Step-In Shower Transfer Supervision/Set Up Routine Functional Transfers for ADL Modified Independent with Grooming Routine Independent Feeding Routine Independent Nursing: Goals Bladder Goal independent Bowel Goal independent Nutrition Goal 100% of all meals Medication Goal independent Nutrition: Goals Intervention Goals 1. improved and adequate po intake to maintain present wt, hydration, and lean body mass 2. ultimately, adequate po intake for wt gain 10- 15# 3. pt will tolerate least-restrictive diet texture without difficulty chewing 4. achieve and maintain regulated bowel pattern without c/o constipation or diarrhea Speech: Goals Speech Goal 1 Expressive Language Speech Evaluation Status Goal 7 1 Speech Current Status Goal 1 7 Goal 1 Comments Long-Term Goal: Pt will use conversational repair strategies to cooperatively find words in structured conversation, and recall those words after delay, with 100% accuracy, given extra time, Independently. Status: Met Short-Term Goal: Pt will use conversational repair strategies to cooperatively find words in structured conversation, and recall those words after delay, with 100% accuracy, given extra time, Independently. Status: Met. For 5 categories, patient I'ly named 5 items that belong to that category and named two that "go with"each other. For 8 pictures, patient recalled a personal story, used strategies to describe a mcmanus word and ask the listener to guess, and then repeated that word 3 or more times in meaningful sentence sot complete her stories. Patient consistently remembered to continue to repeat the mcmanus word, and reclaled it again after telling the story. Social Work: Goals Discharge Plan return home with home care svs and family support Potential for Family Training TBD (pt lives alone) Anticipated Discharge Home Destination Discharge With home care svs and family support Care Plan: Care Plan ADL's - Improve/Maintain Start: 12/20/18 01:36 Freq: DAILY Status: Active Target: Protocol: Activity Type Activity Date Activity User E-Sign Co-Sign Detail Recorded Client Recorded Date Recorded By Document 01/03/19 10:54 [id number] 01/03/19 10:54 [id number] 01/03/19 10:54 PMRU Outcome: ADL's/ADL Transfers Orders/Interventions Occupational Therapy Evaluation & Treatment Device Yes Patient to receive OT 5x/wk for 60-120 Therex min/day Self Care Management Group Therapy Neuromuscular ReEducation UE/LE ADL's with Assist Yes: mod I ADL Transfers with Assist Yes: mod I Toileting: Transfers,Clothing Management Yes: mod I ,Hygeine w/Assist Light Kitchen/Laundry w/Assist Yes: S Progression Toward Outcome/Goals Progressing Outcome/Goals Met Pt demonstrates decreased motivation this date asking specification writer to assist with increased tasks throughout session. With encouragement she is able to complete all dressing with set-up assist. Cardiovascular- Improve/Maintain Start: 12/20/18 01:36 Freq: QSHIFT Status: Active Target: Protocol: Activity Type Activity Date Activity User E-Sign Co-Sign Detail Recorded Client Recorded Date Recorded By Document 01/03/19 03:40 [id number] 01/03/19 03:42 [id number] 01/03/19 03:40 PMRU Outcome: Cardiovascular Vital Signs q Shift for 48hrs Then BID Yes Daily Weight Ordered No Current Cardiovascular Outcome/Goal Maintain/ Achieve Baseline HR, BP , Perfusion Maintain/ Achieve Hemodynamic Stability Free of Abnormal Cardiac Symptoms Progression Toward Outcome/Goal Progressing Communication-Improve/Maintain Start: 12/20/18 01:36 Freq: DAILY Status: Active Target: Protocol: Activity Type Activity Date Activity User E-Sign Co-Sign Detail Recorded Client Recorded Date Recorded By Document 01/02/19 00:00 [id number] 01/02/19 00:00 [id number] 01/02/19 00:00 PMRU Outcome: Communication/Cognitive Status Outcome/Goals Makes Needs Known Effectively Other Outcomes/Goals Long-Term Goal: Pt will use conversational repair strategies to cooperatively find words in structured conversation, and recall those words after delay, with 100% accuracy, given extra time, Independently. Status: Met Short-Term Goal : Pt will use conversational repair strategies to cooperatively find words in structured conversation, and recall those words after delay, with 100% accuracy, given extra time, Independently. Status: Met. For 8 pictures, patient recalled a personal story, used strategies to describe a mcmanus word and ask the listener to guess, and then repeated that word 3 or more times in meaningful sentence sot complete her stories. Patient consistently remembered to continue to repeat the mcmanus wrd, and reclaled it again after telling the story. Progression Toward Outcomes/Goals Progressing Discharge Planning - Improve/Maintain Start: 12/20/18 01:36 Freq: DAILY Status: Active Target: Protocol: Activity Type Activity Date Activity User E-Sign Co-Sign Detail Recorded Client Recorded Date Recorded By Document 01/02/19 00:00 [id number] 01/02/19 00:00 [id number] 01/02/19 00:00 PMRU Outcome: Discharge Planning Update Patient Family No Outcome/Goals Demonstrates Understanding of Discharge Plan Progression Toward Outcome/Goals Progressing /GI-Improve/Maintain Start: 12/20/18 01:36 Freq: QSHIFT Status: Active Target: Protocol: Activity Type Activity Date Activity User E-Sign Co-Sign Detail Recorded Client Recorded Date Recorded By Document 01/03/19 03:40 [id number] 01/03/19 03:42 [id number] 01/03/19 03:40 PMRU Outcome: Genitourinary/ Gastrointestinal Genitourinary- Outcome/Goals Maintain/ Achieve Urinary Continence Remain Free of Hospital- Acquired UTI Gastrointestinal-Outcome/Goals Maintain/ Achieve Bowel Regularity in Accordance with Pt's Baseline Remain Free of Emesis Prevent Constipation Laxatives as Ordered Progression Toward Outcome/Goals - Progressing Progression Toward Outcome/Goals - GI Progressing Metabolic Status- Improve/Maintain Start: 12/20/18 01:36 Freq: QSHIFT Status: Complete Target: Protocol: Activity Type Activity Date Activity User E-Sign Co-Sign Detail Recorded Client Recorded Date Recorded By Document 12/22/18 09:00 [id number] 12/22/18 10:31 [id number] 12/22/18 09:00 PMRU Outcome: Metabolic Status Have Fingersticks Been Ordered No Neurological- Improve/Maintain Start: 12/20/18 01:36 Freq: QSHIFT Status: Active Target: Protocol: Activity Type Activity Date Activity User E-Sign Co-Sign Detail Recorded Client Recorded Date Recorded By Document 01/03/19 03:40 [id number] 01/03/19 03:42 [id number] 01/03/19 03:40 PMRU Outcome: Neurological Weakness/Aphasia Weakness Outcome/Goals Maintain/ Achieve Baseline Neurological Status Improve Neurological Status Maintain/ Improve Strength/ROM Progression Toward Outcome/Goals Progressing Outcome/Goals Met Comment denies numbness Nutrition/Swallowing- Improve/Maintain Start: 12/20/18 01:36 Freq: QSHIFT Status: Active Target: Protocol: Activity Type Activity Date Activity User E-Sign Co-Sign Detail Recorded Client Recorded Date Recorded By Document 01/02/19 20:00 [id number] 01/02/19 22:06 [id number] 01/02/19 20:00 PMRU Outcome: Nutrition/Swallowing Outcome/Goals Demonstrates Adequate Hydration/ Prevents Dehydration Maintain/ Improve Nutritional Status Progression Toward Outcome/Goals Progressing Pain/Comfort- Improve/Maintain Start: 12/20/18 01:36 Freq: QSHIFT Status: Active Target: Protocol: Activity Type Activity Date Activity User E-Sign Co-Sign Detail Recorded Client Recorded Date Recorded By Document 01/03/19 03:40 [id number] 01/03/19 03:42 [id number] 01/03/19 03:40 PMRU Outcome: Pain/Comfort Outcome/Goals Demonstrates Knowledge and Use of Available Comfort Measures Achieves Acceptable Comfort/Pain Level as Determined by Patient/Condit Maintain Comfort Level Allowing Patient to Fully Participate in Rehab Progression Toward Outcome/Goals Progressing Outcome/Goals Met Comment medicated with oxycodone Respiratory - Improve/Maintain Start: 12/20/18 01:36 Freq: QSHIFT Status: Complete Target: Protocol: Activity Type Activity Date Activity User E-Sign Co-Sign Detail Recorded Client Recorded Date Recorded By Document 12/31/18 20:56 [id number] 12/31/18 20:57 [id number] 12/31/18 20:56 PMRU Outcome: Respiratory Does Patient Have a Trach No Outcome/Goals Maintain/ Improve O2 Sat per MD Order Maintain/ Improve Activity Tolerance Prevent Pneumonia/ Atelectasis Remain Aspiration Free Progression Toward Outcome/Goals Progressing Safety- Improve/Maintain Start: 12/20/18 01:36 Freq: QSHIFT Status: Active Target: Protocol: Activity Type Activity Date Activity User E-Sign Co-Sign Detail Recorded Client Recorded Date Recorded By Document 01/03/19 03:40 [id number] 01/03/19 03:42 [id number] 01/03/19 03:40 PMRU Outcome: Safety Outcome/Goals Remain Free of Injury or Harm Cooperates with Safety Measures for Least Restrictive Environment Prevent Falls/ Injury Other Outcome/Goals no attempts to get up independently Progression Toward Outcome/Goals Progressing Skin- Improve/Maintain Start: 12/20/18 01:36 Freq: QSHIFT Status: Active Target: Protocol: Activity Type Activity Date Activity User E-Sign Co-Sign Detail Recorded Client Recorded Date Recorded By Document 01/03/19 03:40 [id number] 01/03/19 03:42 [id number] 01/03/19 03:40 PMRU Outcome: Skin Skin Risk Level High Skin Orders Dressing Change Air Mattress Heels Off Bed Turn/Position q2hr While in Bed Outcome/Goals Maintain/ Improve Skin Intergrity Free from Decubitus Outcome/Goals Comment optifoam intact to lle, gauze intact to back Progression Toward Outcome/Goals Progressing Medicine Note: Length of Stay: 2 weeks Anticipated Discharge Destination: Home Tentative Discharge Date: 01/17/19 Discharged to: home
[2019-01-03] MEDS: Enoxaparin(*) 30 MG/0.3 ML SYR SUBCUT SCH (14:41)
[2019-01-03] MEDS: Atorvastatin* 40 MG TAB PO SCH (16:56)
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
[2019-01-03] MEDS: Ropinirole TAB* 0.5 MG TAB PO SCH (20:46)
[2019-01-04] MEDS: oxyCODONE TAB* 5 MG TAB PO PRN ×5 (03:56→21:28)
[2019-01-04 05:25] LABS: ABS Basophils 0.1 10^3/ul (0-0.2); ABS Eosinophils 0.3 10^3/ul (0-0.6); ABS Lymphocytes 0.9 10^3/ul (1.0-4.8); ABS Monocytes 0.7 10^3/ul (0-0.8); ABS Neutrophils 3.7 10^3/ul (1.5-7.7); ABS Nucleated RBC 0 10^3/ul; Eosinophil % 4.6 %; Hematocrit 29 % (35-47); Hemoglobin 9.4 g/dl (12.0-16.0); Lymphocyte % 15.8 %; Mean Corpuscular HGB Conc 32 g/dl (31-36); Mean Corpuscular Hemoglobin 32 pg (27-31); Mean Corpuscular Volume 99 fL (80-97); Mean Platelet Volume 7.5 fL (7.4-10.4); Nucleated Red Blood Cells % 0; Platelet Count 431 10^3/ul (150-450); Red Blood Count 2.95 10^6/ul (4.00-5.40); Red Cell Distribution Width 13 % (10.5-15); White Blood Count 5.6 10^3/ul (3.5-10.8)
[2019-01-04 05:41] LABS: Albumin/Globulin Ratio 1.3 (1-3); BUN/Creatinine Ratio 22.1 (8-20); Calcium 8.3 mg/dL (8.6-10.3); EGFR African American 87.5 (>60); EGFR Non-African American 72.3 (>60); Globulin 2.4 g/dL (2-4); Potassium 3.7 mmol/L (3.5-5.0); Total Bilirubin 0.4 mg/dL (0.2-1.0); Total Protein 5.4 g/dL (6.4-8.9)
[2019-01-04] MEDS: FLUoxetine CAP* 10 MG PO SCH (08:00)
[2019-01-04] MEDS: Magnesium Oxide TAB* 400 MG PO SCH (08:00)
[2019-01-04] MEDS: Famotidine TAB* 20 MG PO SCH ×2 (08:00→21:27)
[2019-01-04] MEDS: Metoprolol Tartrate TAB* 25 MG PO SCH ×2 (08:17→21:27)
[2019-01-04] MEDS: Enoxaparin(*) 30 MG/0.3 ML SYR SUBCUT SCH (13:53)
[2019-01-04] MEDS: Atorvastatin* 40 MG TAB PO SCH (17:10)
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
[2019-01-04] MEDS: Ropinirole TAB* 0.5 MG TAB PO SCH (21:27)
[2019-01-05] MEDS: oxyCODONE TAB* 5 MG TAB PO PRN ×5 (03:32→22:09)
[2019-01-05] MEDS: FLUoxetine CAP* 10 MG PO SCH (07:54)
[2019-01-05] MEDS: Magnesium Oxide TAB* 400 MG PO SCH (07:54)
[2019-01-05] MEDS: Famotidine TAB* 20 MG PO SCH ×2 (07:54→22:09)
[2019-01-05] MEDS: Metoprolol Tartrate TAB* 25 MG PO SCH ×2 (08:01→22:04)
[2019-01-05] MEDS: Enoxaparin(*) 30 MG/0.3 ML SYR SUBCUT SCH (12:55)
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
[2019-01-05] MEDS: Atorvastatin* 40 MG TAB PO SCH (17:22)
[2019-01-05] MEDS: Senna TAB PO PRN (22:09)
[2019-01-05] MEDS: Docusate CAP* 100 MG PO PRN (22:09)
[2019-01-05] MEDS: Ropinirole TAB* 0.5 MG TAB PO SCH (22:09)
[2019-01-06] MEDS: oxyCODONE TAB* 5 MG TAB PO PRN ×4 (04:48→17:26)
[2019-01-06] MEDS: Famotidine TAB* 20 MG PO SCH ×2 (09:23→21:41)
[2019-01-06] MEDS: Metoprolol Tartrate TAB* 25 MG PO SCH ×2 (09:23→21:45)
[2019-01-06] MEDS: Magnesium Oxide TAB* 400 MG PO SCH (09:23)
[2019-01-06] MEDS: FLUoxetine CAP* 10 MG PO SCH (09:24)
[2019-01-06] MEDS ORDERED: FLUoxetine CAP* 10 MG PO ONE (11:03)
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
[2019-01-06] MEDS: Enoxaparin(*) 30 MG/0.3 ML SYR SUBCUT SCH (14:23)
[2019-01-06] MEDS: Atorvastatin* 40 MG TAB PO SCH (17:26)
[2019-01-06] MEDS: Ropinirole TAB* 0.5 MG TAB PO SCH (21:41)
[2019-01-07] MEDS: oxyCODONE TAB* 5 MG TAB PO PRN ×4 (05:06→22:09)
[2019-01-07] MEDS: Magnesium Oxide TAB* 400 MG PO SCH (07:28)
[2019-01-07] MEDS: Metoprolol Tartrate TAB* 25 MG PO SCH ×2 (07:32→22:07)
[2019-01-07] MEDS: Famotidine TAB* 20 MG PO SCH ×2 (07:32→21:12)
[2019-01-07] MEDS: FLUoxetine CAP* 20 MG PO SCH (07:32)
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
[2019-01-07] MEDS: Enoxaparin(*) 30 MG/0.3 ML SYR SUBCUT SCH (13:50)
[2019-01-07] MEDS: Atorvastatin* 40 MG TAB PO SCH (17:49)
[2019-01-07] MEDS: Ropinirole TAB* 0.5 MG TAB PO SCH (21:12)
[2019-01-08] MEDS: oxyCODONE TAB* 5 MG TAB PO PRN ×4 (04:48→20:32)
[2019-01-08] MEDS: Metoprolol Tartrate TAB* 25 MG PO SCH ×2 (07:59→20:31)
[2019-01-08] MEDS: Famotidine TAB* 20 MG PO SCH ×2 (08:04→20:32)
[2019-01-08] MEDS: FLUoxetine CAP* 20 MG PO SCH (08:05)
[2019-01-08] MEDS: Magnesium Oxide TAB* 400 MG PO SCH (08:05)
[2019-01-08] MEDS: Enoxaparin(*) 30 MG/0.3 ML SYR SUBCUT SCH (13:51)
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
[2019-01-08] MEDS: Atorvastatin* 40 MG TAB PO SCH (17:41)
[2019-01-08] MEDS: Ropinirole TAB* 0.5 MG TAB PO SCH (20:32)
[2019-01-09] MEDS: oxyCODONE TAB* 5 MG TAB PO PRN ×5 (03:01→22:34)
[2019-01-09] MEDS: Ondansetron ODT TAB* 4 MG SL PRN (09:05)
[2019-01-09] MEDS: Famotidine TAB* 20 MG PO SCH ×2 (09:59→22:34)
[2019-01-09] MEDS: FLUoxetine CAP* 20 MG PO SCH (09:59)
[2019-01-09] MEDS: Metoprolol Tartrate TAB* 25 MG PO SCH ×2 (09:59→22:33)
[2019-01-09] MEDS: Magnesium Oxide TAB* 400 MG PO SCH (09:59)
[2019-01-09] MEDS: Enoxaparin(*) 30 MG/0.3 ML SYR SUBCUT SCH (14:15)
[2019-01-09] MEDS: Atorvastatin* 40 MG TAB PO SCH (16:36)
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
[2019-01-09] MEDS: Ropinirole TAB* 0.5 MG TAB PO SCH (22:33)
[2019-01-09] MEDS: Megestrol TAB* 40 MG PO SCH (22:34)
[2019-01-10] MEDS: oxyCODONE TAB* 5 MG TAB PO PRN ×4 (03:15→19:20)
[2019-01-10] MEDS: Megestrol TAB* 40 MG PO SCH ×2 (08:27→20:59)
[2019-01-10] MEDS: Metoprolol Tartrate TAB* 25 MG PO SCH ×2 (08:27→20:54)
[2019-01-10] MEDS: Famotidine TAB* 20 MG PO SCH ×2 (08:27→20:58)
[2019-01-10] MEDS: FLUoxetine CAP* 20 MG PO SCH (08:27)
[2019-01-10] MEDS: Magnesium Oxide TAB* 400 MG PO SCH (08:27)
--- NOTE | 2019-01-10 12:30 | PMRUTEAM ---
PMRU: Team Meeting Current Status: Nursing: Current Status Skin Deviations [L foot/ankle] Incision Skin Deviations [L clavicle] Other Skin Deviations [adjacent to Other thoracic vert] Skin Deviations [Back] Other Skin Deviations [Bilateral Other Heel] Skin Deviations [Coccyx] Other Skin Deviations [Left Lower Abrasion Anterior Leg] Skin Deviations [Left Lateral Other Foot] Skin Deviation Description [L Cast in place foot/ankle] Skin Deviation Description [L sling in place clavicle] Skin Deviation Description [ Red, blanching, superficial abrasion adjacent to thoracic vert] Skin Deviation Description [ red, blanchable along thoracic spine; pt Back] encouraged to T&P, lotion applied Skin Deviation Description [ slightly pink; heels floated Bilateral Heel] Skin Deviation Description [ slightly reddened, blanchable Coccyx] Skin Deviation Description [ optifoam intact Left Lower Anterior Leg] Skin Deviation Description [ cast in place Left Lateral Foot] Bladder Current Status voiding on BSC Bowel Current Status colace given Nutrition Current Status appetite good Medication Current Status oxycodone for pain Physical Therapy: Current Status Bed Mobility Assistance Independent Transfer Mobility Assistance Supervision Transfer/Bed Mobility None Recommended Devices Transfer Mobility Comment Pt. a bit unstedy with transfer. Needs cg x 1 working towards S x 1. Ambulation Assistance Not Tested Ambulation Assistive Devices Rolling Walker Number of Feet Patient 200' Ambulated Ambulation Comment LOB x 2 step thru gait with SBQC. Pt. needed help to regain balance min A . Stairs Assistance Not Tested Stairs Recommended Devices Two Rails Number of Stairs 5 Curb Not Tested Objective Comments pre-gait: L foot forward/ backward step x 10 transfers: sit to stand x 5 from elevated surface, x 5 from w/c with UE pushoff and cues for R LE WBing and anterior w/s Occupational Therapy: Current Status Upper Body Dressing Supervision Lower Body Dressing Supervision Bathing Supervision Toileting Contact Guard Assist Toilet Transfer Supervision,Contact Guard Assist Shower Transfer Supervision Eating Supervision Rec Therapy: Current Status Summary of Assessment and Pt. has been engaging in recreation services Clinical Impression throughout her stay. Activities of choice include [place], [employer], and chatting with expert medical writer. Pt. is typically in good spirits and is open to conversation. Pt. consistenly thanks expert medical writer at the end of sessions and asks when expert medical writer will be back again. Treatment Goals Pt. will engage in recreation services while on the unit. Treatment Plan Continue providing recreation sessions. Continue building rapport. Social Work: Current Status Discharge Plan return home with home care svs and family support Potential for Family Training pt's sister is supportive and willing to participate in family training Anticipated Discharge Home Destination Discharge With home care svs and family support Nutrition: Current Status Monitoring pt's wt (daily x 3 days) varying 77-80#. Calorie Count x 3 days averaged ~950 kcals, 40 g prot to meet only ~65% of her daily goal (1500 kcals, 60 g prot). She did vomit after breakfast yesterday, which she ate fairly well, then ate very little lunch and somewhat better dinner. Pt gets rather angry and annoyed with food, which she has reported is common for her ever since gastric surgery/chemo/radiation and related food intolerances. Last BM 01/09. Megace BID started last evening. Will cont to follow. 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 Discharge speech-language therapy. Speech Current Status Goal 1 7 Goals: Physical Therapy: Initial Goals Bed Mobility Assistance Independent Transfer Mobility Assistance Independent Transfer/Bed Mobility Small Base Quad Cane Recommended Devices Ambulation Independent Ambulation Recommended Devices Small Base Quad Cane Ambulation Distance 150 Stairs Assistance Independent Stair Recommended Devices Quad Cane,One Rail Number of Stairs 6 Home Exercise Program Independent Assistance Physical Therapy: Updated Goals Bed Mobility Assistance Independent Transfer Mobility Assistance Independent Transfer/Bed Mobility Small Base Quad Cane Recommended Devices Ambulation Assistance Independent Ambulation Assistive Devices Small Base Quad Cane Wheelchair Distance (ft) 100' Stairs Assistance Independent Stairs Recommended Devices One Rail Number of Stairs 2 x 5 Occupational Therapy: Initial Goals Goals to be Completed in (Days 3-4 weeks ) Upper Body Bathing Routine Supervision/Set Up Lower Body Bathing Routine Supervision/Set Up Upper Body Dressing Routine Independent Lower Body Dressing Routine Modified Independent with Toilet Hygeine and Clothing Modified Independent with Management Routine Toilet Transfer Routine Modified Independent with Step-In Shower Transfer Supervision/Set Up Routine Functional Transfers for ADL Modified Independent with Grooming Routine Independent Feeding Routine Independent Nursing: Goals Bladder Goal independent Bowel Goal independent Nutrition Goal 100% of all meals Medication Goal independent Nutrition: Goals Intervention Goals 1. improved and adequate po intake to maintain present wt, hydration, and lean body mass 2. ultimately, adequate po intake for wt gain 10- 15# 3. pt will tolerate least-restrictive diet texture without difficulty chewing 4. achieve and maintain regulated bowel pattern without c/o constipation or diarrhea Speech: Goals Speech Goal 1 Expressive Language Speech Evaluation Status Goal 7 1 Speech Current Status Goal 1 7 Goal 1 Comments Long-Term Goal: Pt will use conversational repair strategies to cooperatively find words in structured conversation, and recall those words after delay, with 100% accuracy, given extra time, Independently. Status: Met Short-Term Goal: Pt will use conversational repair strategies to cooperatively find words in structured conversation, and recall those words after delay, with 100% accuracy, given extra time, Independently. Status: Met. For 5 categories, patient I'ly named 5 items that belong to that category and named two that "go with"each other. For 8 pictures, patient recalled a personal story, used strategies to describe a mcmanus word and ask the listener to guess, and then repeated that word 3 or more times in meaningful sentence sot complete her stories. Patient consistently remembered to continue to repeat the mcmanus word, and reclaled it again after telling the story. Social Work: Goals Discharge Plan return home with home care svs and family support Potential for Family Training pt's sister is supportive and willing to participate in family training Anticipated Discharge Home Destination Discharge With home care svs and family support Care Plan: Care Plan ADL's - Improve/Maintain Start: 12/20/18 01:36 Freq: DAILY Status: Active Target: Protocol: Activity Type Activity Date Activity User E-Sign Co-Sign Detail Recorded Client Recorded Date Recorded By Document 01/06/19 10:10 [id number] 01/06/19 10:11 [id number] 01/06/19 10:10 PMRU Outcome: ADL's/ADL Transfers Orders/Interventions Occupational Therapy Evaluation & Treatment Device Yes Patient to receive OT 5x/wk for 60-120 Therex min/day Self Care Management Group Therapy Neuromuscular ReEducation UE/LE ADL's with Assist Yes: mod I ADL Transfers with Assist Yes: mod I Toileting: Transfers,Clothing Management Yes: mod I ,Hygeine w/Assist Light Kitchen/Laundry w/Assist Yes: S Progression Toward Outcome/Goals Progressing Outcome/Goals Met Pt completes ADL with supervision in sitting and CGA in standing for steadying assist. Unclear if pt will continue to make progress until her weight bearing status changes and when she begins ambulating again. Cardiovascular- Improve/Maintain Start: 12/20/18 01:36 Freq: QSHIFT Status: Active Target: Protocol: Activity Type Activity Date Activity User E-Sign Co-Sign Detail Recorded Client Recorded Date Recorded By Document 01/10/19 00:06 [id number] 01/10/19 00:06 [id number] 01/10/19 00:06 PMRU Outcome: Cardiovascular Vital Signs q Shift for 48hrs Then BID Yes Daily Weight Ordered No Current Cardiovascular Outcome/Goal Maintain/ Achieve Baseline HR, BP , Perfusion Maintain/ Achieve Hemodynamic Stability Free of Abnormal Cardiac Symptoms Progression Toward Outcome/Goal Progressing Communication-Improve/Maintain Start: 12/20/18 01:36 Freq: DAILY Status: Active Target: Protocol: Activity Type Activity Date Activity User E-Sign Co-Sign Detail Recorded Client Recorded Date Recorded By Document 01/10/19 00:05 [id number] 01/10/19 00:05 [id number] 01/10/19 00:05 PMRU Outcome: Communication/Cognitive Status Outcome/Goals Makes Needs Known Effectively Progression Toward Outcomes/Goals Progressing Discharge Planning - Improve/Maintain Start: 12/20/18 01:36 Freq: DAILY Status: Active Target: Protocol: Activity Type Activity Date Activity User E-Sign Co-Sign Detail Recorded Client Recorded Date Recorded By Document 01/10/19 00:05 [id number] 01/10/19 00:05 [id number] 01/10/19 00:05 PMRU Outcome: Discharge Planning Update Patient Family No Outcome/Goals Demonstrates Understanding of Discharge Plan Progression Toward Outcome/Goals Progressing /GI-Improve/Maintain Start: 12/20/18 01:36 Freq: QSHIFT Status: Active Target: Protocol: Activity Type Activity Date Activity User E-Sign Co-Sign Detail Recorded Client Recorded Date Recorded By Document 01/10/19 00:06 [id number] 01/10/19 00:06 [id number] 01/10/19 00:06 PMRU Outcome: Genitourinary/ Gastrointestinal Genitourinary- Outcome/Goals Maintain/ Achieve Urinary Continence Remain Free of Hospital- Acquired UTI Gastrointestinal-Outcome/Goals Maintain/ Achieve Bowel Regularity in Accordance with Pt's Baseline Remain Free of Emesis Prevent Constipation Laxatives as Ordered Progression Toward Outcome/Goals - Progressing Progression Toward Outcome/Goals - GI Progressing Metabolic Status- Improve/Maintain Start: 12/20/18 01:36 Freq: QSHIFT Status: Complete Target: Protocol: Activity Type Activity Date Activity User E-Sign Co-Sign Detail Recorded Client Recorded Date Recorded By Document 12/22/18 09:00 [id number] 12/22/18 10:31 [id number] 12/22/18 09:00 PMRU Outcome: Metabolic Status Have Fingersticks Been Ordered No Neurological- Improve/Maintain Start: 12/20/18 01:36 Freq: QSHIFT Status: Active Target: Protocol: Activity Type Activity Date Activity User E-Sign Co-Sign Detail Recorded Client Recorded Date Recorded By Document 01/10/19 00:06 [id number] [id number] 01/10/19 00:06 [id number] 01/10/19 00:06 PMRU Outcome: Neurological Weakness/Aphasia Weakness Outcome/Goals Maintain/ Achieve Baseline Neurological Status Improve Neurological Status Maintain/ Improve Strength/ROM Progression Toward Outcome/Goals Progressing Nutrition/Swallowing- Improve/Maintain Start: 12/20/18 01:36 Freq: QSHIFT Status: Active Target: Protocol: Activity Type Activity Date Activity User E-Sign Co-Sign Detail Recorded Client Recorded Date Recorded By Document 01/10/19 00:06 [id number] [email or web address] 01/10/19 00:06 [id number] 01/10/19 00:06 PMRU Outcome: Nutrition/Swallowing Outcome/Goals Demonstrates Adequate Hydration/ Prevents Dehydration Maintain/ Improve Nutritional Status Progression Toward Outcome/Goals Progressing Pain/Comfort- Improve/Maintain Start: 12/20/18 01:36 Freq: QSHIFT Status: Active Target: Protocol: Activity Type Activity Date Activity User E-Sign Co-Sign Detail Recorded Client Recorded Date Recorded By Document 01/10/19 00:06 [id number] [id number] 01/10/19 00:06 [id number] 01/10/19 00:06 PMRU Outcome: Pain/Comfort Outcome/Goals Demonstrates Knowledge and Use of Available Comfort Measures Achieves Acceptable Comfort/Pain Level as Determined by Patient/Condit Maintain Comfort Level Allowing Patient to Fully Participate in Rehab Progression Toward Outcome/Goals Progressing Outcome/Goals Met Comment pt resting Respiratory - Improve/Maintain Start: 12/20/18 01:36 Freq: QSHIFT Status: Complete Target: Protocol: Activity Type Activity Date Activity User E-Sign Co-Sign Detail Recorded Client Recorded Date Recorded By Document 12/31/18 20:56 [id number] 12/31/18 20:57 [id number] 12/31/18 20:56 PMRU Outcome: Respiratory Does Patient Have a Trach No Outcome/Goals Maintain/ Improve O2 Sat per MD Order Maintain/ Improve Activity Tolerance Prevent Pneumonia/ Atelectasis Remain Aspiration Free Progression Toward Outcome/Goals Progressing Safety- Improve/Maintain Start: 12/20/18 01:36 Freq: QSHIFT Status: Active Target: Protocol: Activity Type Activity Date Activity User E-Sign Co-Sign Detail Recorded Client Recorded Date Recorded By Document 01/10/19 00:06 [id number] [id number] 01/10/19 00:06 [id number] 01/10/19 00:06 PMRU Outcome: Safety Outcome/Goals Remain Free of Injury or Harm Cooperates with Safety Measures for Least Restrictive Environment Prevent Falls/ Injury Progression Toward Outcome/Goals Progressing Skin- Improve/Maintain Start: 12/20/18 01:36 Freq: QSHIFT Status: Active Target: Protocol: Activity Type Activity Date Activity User E-Sign Co-Sign Detail Recorded Client Recorded Date Recorded By Document 01/10/19 00:06 [id number] [id number] 01/10/19 00:06 [id number] 01/10/19 00:06 PMRU Outcome: Skin Skin Risk Level High Skin Orders Air Mattress Turn/Position q2hr While in Bed Outcome/Goals Maintain/ Improve Skin Intergrity Free from Decubitus Progression Toward Outcome/Goals Progressing Medicine Note: Length of Stay: 1 week Anticipated Discharge Destination: Home Tentative Discharge Date: 01/17/19 Discharged to: home
[2019-01-10] MEDS: Enoxaparin(*) 30 MG/0.3 ML SYR SUBCUT SCH (14:17)
[2019-01-10] MEDS: Atorvastatin* 40 MG TAB PO SCH (17:07)
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
[2019-01-10] MEDS: Ropinirole TAB* 0.5 MG TAB PO SCH (20:59)
[2019-01-11] MEDS: oxyCODONE TAB* 5 MG TAB PO PRN ×5 (04:31→21:48)
[2019-01-11] MEDS: Famotidine TAB* 20 MG PO SCH ×2 (07:54→21:40)
[2019-01-11] MEDS: FLUoxetine CAP* 20 MG PO SCH (07:54)
[2019-01-11] MEDS: Metoprolol Tartrate TAB* 25 MG PO SCH ×2 (07:55→21:40)
[2019-01-11] MEDS: Megestrol TAB* 40 MG PO SCH ×2 (07:55→21:48)
[2019-01-11] MEDS: Magnesium Oxide TAB* 400 MG PO SCH (07:55)
[2019-01-11] MEDS: Enoxaparin(*) 30 MG/0.3 ML SYR SUBCUT SCH (13:55)
[2019-01-11] MEDS: Atorvastatin* 40 MG TAB PO SCH (16:40)
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
[2019-01-11] MEDS: Ropinirole TAB* 0.5 MG TAB PO SCH (21:40)
[2019-01-11] MEDS: Senna TAB PO PRN (21:49)
[2019-01-11] MEDS: Docusate CAP* 100 MG PO PRN (21:53)
[2019-01-12] MEDS: oxyCODONE TAB* 5 MG TAB PO PRN ×4 (05:55→21:44)
[2019-01-12] MEDS: Magnesium Oxide TAB* 400 MG PO SCH (07:46)
[2019-01-12] MEDS: Famotidine TAB* 20 MG PO SCH ×2 (07:46→21:44)
[2019-01-12] MEDS: FLUoxetine CAP* 20 MG PO SCH (07:46)
[2019-01-12] MEDS: Metoprolol Tartrate TAB* 25 MG PO SCH ×2 (07:46→21:46)
[2019-01-12] MEDS: Megestrol TAB* 40 MG PO SCH ×2 (07:46→21:45)
[2019-01-12] MEDS: Enoxaparin(*) 30 MG/0.3 ML SYR SUBCUT SCH (14:20)
[2019-01-12] MEDS ORDERED: Magnesium Hydroxide LIQ* 30 ML UDC PO PRN (16:13)
[2019-01-12] MEDS: Atorvastatin* 40 MG TAB PO SCH (17:13)
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
[2019-01-12] MEDS: Docusate CAP* 100 MG PO PRN (21:44)
[2019-01-12] MEDS: Senna TAB PO PRN (21:44)
[2019-01-12] MEDS: Ropinirole TAB* 0.5 MG TAB PO SCH (21:44)
[2019-01-13] MEDS: oxyCODONE TAB* 5 MG TAB PO PRN ×5 (03:07→21:54)
[2019-01-13] MEDS: Famotidine TAB* 20 MG PO SCH ×2 (07:34→21:52)
[2019-01-13] MEDS: Megestrol TAB* 40 MG PO SCH ×2 (07:34→21:53)
[2019-01-13] MEDS: Docusate CAP* 100 MG PO PRN (07:34)
[2019-01-13] MEDS: FLUoxetine CAP* 20 MG PO SCH (07:35)
[2019-01-13] MEDS: Metoprolol Tartrate TAB* 25 MG PO SCH ×2 (07:35→21:52)
[2019-01-13] MEDS: Magnesium Oxide TAB* 400 MG PO SCH (07:35)
[2019-01-13 10:09] LABS: ABS Basophils 0 10^3/ul (0-0.2); ABS Eosinophils 0.2 10^3/ul (0-0.6); ABS Monocytes 0.6 10^3/ul (0-0.8); ABS Neutrophils 4.8 10^3/ul (1.5-7.7); ABS Nucleated RBC 0 10^3/ul; Eosinophil % 2.5 %; Hematocrit 35 % (35-47); Hemoglobin 11.2 g/dl (12.0-16.0); Lymphocyte % 14.7 %; Mean Corpuscular HGB Conc 32 g/dl (31-36); Mean Corpuscular Hemoglobin 32 pg (27-31); Mean Corpuscular Volume 100 fL (80-97); Mean Platelet Volume 8.5 fL (7.4-10.4); Nucleated Red Blood Cells % 0; Platelet Count 260 10^3/ul (150-450); Red Blood Count 3.53 10^6/ul (4.00-5.40); Red Cell Distribution Width 13 % (10.5-15); White Blood Count 6.6 10^3/ul (3.5-10.8)
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
[2019-01-13 10:25] LABS: Albumin 3.5 g/dL (3.2-5.2); Albumin/Globulin Ratio 1.3 (1-3); BUN/Creatinine Ratio 23.3 (8-20); Calcium 8.7 mg/dL (8.6-10.3); EGFR Non-African American 63.7 (>60); Globulin 2.7 g/dL (2-4); Potassium 3.1 mmol/L (3.5-5.0); Total Bilirubin 0.4 mg/dL (0.2-1.0); Total Protein 6.2 g/dL (6.4-8.9)
[2019-01-13] MEDS ORDERED: Potassium Chlor TAB* 20 MEQ TAB.ER PO ONE (10:27)
[2019-01-13 12:36] LABS: Magnesium 2.1 mg/dL (1.9-2.7)
[2019-01-13] MEDS: Enoxaparin(*) 30 MG/0.3 ML SYR SUBCUT SCH (14:16)
[2019-01-13] MEDS: Atorvastatin* 40 MG TAB PO SCH (16:57)
[2019-01-13] MEDS ORDERED: Potassium Chlor TAB* 20 MEQ TAB.ER PO SCH (21:00)
[2019-01-13] MEDS: Ropinirole TAB* 0.5 MG TAB PO SCH (21:52)
[2019-01-14] MEDS: oxyCODONE TAB* 5 MG TAB PO PRN ×4 (03:20→17:24)
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
[2019-01-14] MEDS: Famotidine TAB* 20 MG PO SCH ×2 (09:01→22:01)
[2019-01-14] MEDS: Magnesium Oxide TAB* 400 MG PO SCH (09:01)
[2019-01-14] MEDS: FLUoxetine CAP* 20 MG PO SCH (09:01)
[2019-01-14] MEDS: Megestrol TAB* 40 MG PO SCH ×2 (09:01→22:01)
[2019-01-14] MEDS: Metoprolol Tartrate TAB* 25 MG PO SCH ×2 (09:02→22:06)
[2019-01-14] MEDS: Enoxaparin(*) 30 MG/0.3 ML SYR SUBCUT SCH (13:10)
[2019-01-14] MEDS: Atorvastatin* 40 MG TAB PO SCH (17:18)
[2019-01-14] MEDS: Ropinirole TAB* 0.5 MG TAB PO SCH (22:01)
[2019-01-15] MEDS: oxyCODONE TAB* 5 MG TAB PO PRN ×5 (02:16→22:08)
[2019-01-15] MEDS: Famotidine TAB* 20 MG PO SCH ×2 (09:13→20:12)
[2019-01-15] MEDS: Megestrol TAB* 40 MG PO SCH ×2 (09:13→20:13)
[2019-01-15] MEDS: Magnesium Oxide TAB* 400 MG PO SCH (09:13)
[2019-01-15] MEDS: FLUoxetine CAP* 20 MG PO SCH (09:13)
[2019-01-15] MEDS: Metoprolol Tartrate TAB* 25 MG PO SCH ×2 (09:14→20:12)
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
[2019-01-15] MEDS: Enoxaparin(*) 30 MG/0.3 ML SYR SUBCUT SCH (13:34)
[2019-01-15] MEDS: Atorvastatin* 40 MG TAB PO SCH (17:45)
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
[2019-01-15] MEDS: Ropinirole TAB* 0.5 MG TAB PO SCH (20:12)
[2019-01-16] MEDS: oxyCODONE TAB* 5 MG TAB PO PRN ×6 (02:08→22:07)
[2019-01-16] MEDS: Magnesium Oxide TAB* 400 MG PO SCH (08:00)
[2019-01-16] MEDS: Metoprolol Tartrate TAB* 25 MG PO SCH ×2 (08:00→22:09)
[2019-01-16] MEDS: FLUoxetine CAP* 20 MG PO SCH (08:00)
[2019-01-16] MEDS: Famotidine TAB* 20 MG PO SCH ×2 (08:00→22:08)
[2019-01-16] MEDS: Megestrol TAB* 40 MG PO SCH ×2 (08:00→22:08)
[2019-01-16] MEDS: Enoxaparin(*) 30 MG/0.3 ML SYR SUBCUT SCH (14:02)
[2019-01-16] MEDS: Atorvastatin* 40 MG TAB PO SCH (17:24)
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
[2019-01-16] MEDS: Ropinirole TAB* 0.5 MG TAB PO SCH (22:07)
[2019-01-17] MEDS: oxyCODONE TAB* 5 MG TAB PO PRN ×3 (03:55→13:14)
[2019-01-17 06:32] VITALS: BP 88/44
[2019-01-17] MEDS: Magnesium Oxide TAB* 400 MG PO SCH (08:11)
[2019-01-17] MEDS: Famotidine TAB* 20 MG PO SCH (08:11)
[2019-01-17] MEDS: Megestrol TAB* 40 MG PO SCH (08:11)
[2019-01-17] MEDS: FLUoxetine CAP* 20 MG PO SCH (08:11)
[2019-01-17] MEDS: Metoprolol Tartrate TAB* 25 MG PO SCH (08:12)
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
== END 2019-01-17 13:30 | disposition home health service (06) | DRG 860 ==
LOC: PMRU 14:54
PROVIDERS: ADMIT Physical Medicine & Rehabilitation; ATTEND Physical Medicine & Rehabilitation
PROC: F07Z5ZZ Bed Mobility Treatment (ICD-10-PCS; principal; 2018-12-19)
PROC: F07Z9ZZ Gait Training/Functional Ambulation Treatment (ICD-10-PCS; 2018-12-19)
PROC: F07Z8ZZ Transfer Training Treatment (ICD-10-PCS; 2018-12-19)
PROC: F08Z0ZZ Bathing/Showering Techniques Treatment (ICD-10-PCS; 2018-12-19)
PROC: F08Z1ZZ Dressing Techniques Treatment (ICD-10-PCS; 2018-12-19)
PROC: F08Z3ZZ Feeding/Eating Treatment (ICD-10-PCS; 2018-12-19)
PROC: F08Z2ZZ Grooming/Personal Hygiene Treatment (ICD-10-PCS; 2018-12-19)
PROC: 2W3TX2Z Immobilization of Left Foot using Cast (ICD-10-PCS; 2018-12-31)
DX: S22.20XD Unspecified fracture of sternum, subsequent encounter for fracture with routine healing (principal); Z68.1 Body mass index [BMI] 19.9 or less, adult; E44.0 Moderate protein-calorie malnutrition; S42.002D Fracture of unspecified part of left clavicle, subsequent encounter for fracture with routine healing; S92.352D Displaced fracture of fifth metatarsal bone, left foot, subsequent encounter for fracture with routine healing; S22.41XD Multiple fractures of ribs, right side, subsequent encounter for fracture with routine healing; S22.019D Unspecified fracture of first thoracic vertebra, subsequent encounter for fracture with routine healing; S22.029D Unspecified fracture of second thoracic vertebra, subsequent encounter for fracture with routine healing; V49.88XD Car occupant (driver) (passenger) injured in other specified transport accidents, subsequent encounter; I35.0 Nonrheumatic aortic (valve) stenosis; E87.6 Hypokalemia; M81.0 Age-related osteoporosis without current pathological fracture; R74.8 Abnormal levels of other serum enzymes; G89.29 Other chronic pain; M79.672 Pain in left foot; R10.13 Epigastric pain; M85.872 Other specified disorders of bone density and structure, left ankle and foot; Z85.43 Personal history of malignant neoplasm of ovary; Z85.42 Personal history of malignant neoplasm of other parts of uterus; Z85.038 Personal history of other malignant neoplasm of large intestine; Z85.028 Personal history of other malignant neoplasm of stomach; Z79.891 Long term (current) use of opiate analgesic; Z79.899 Other long term (current) drug therapy; Z88.0 Allergy status to penicillin; Z87.891 Personal history of nicotine dependence; Z87.820 Personal history of traumatic brain injury; I95.9 Hypotension, unspecified; F32.9 Major depressive disorder, single episode, unspecified; S06.9X0S Unspecified intracranial injury without loss of consciousness, sequela
CPT/HCPCS: 36415; 80053; 83735; 84132; 85025; A9270-GY; G0515-GO; J1650

== ENCOUNTER 2019-06-27 09:31 | Emergency (ER) | payer MEDICARE, OTHER ==
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
[2019-06-27 11:40] LABS: ABS Monocytes 0.5 10^3/ul (0-0.8); ABS Neutrophils 5.4 10^3/ul (1.5-7.7); Eosinophil % 0.4 %; Hematocrit 31 % (35-47); Hemoglobin 10.5 g/dL (12.0-16.0); Lymphocyte % 13.9 %; Mean Corpuscular HGB Conc 34 g/dL (31-36); Mean Corpuscular Hemoglobin 34 pg (27-31); Mean Corpuscular Volume 103 fL (80-97); Mean Platelet Volume 7.7 fL (7.4-10.4); Platelet Count 224 10^3/uL (150-450); Red Blood Count 3.06 10^6 /uL (3.70-4.87); Red Cell Distribution Width 15 % (10-15); White Blood Count 6.9 10^3/uL (3.5-10.8)
[2019-06-27 12:03] LABS: ALT 37 U/L (7-52); AST 32 U/L (13-39); Albumin 3.4 g/dL (3.2-5.2); Albumin/Globulin Ratio 1.5 (1-3); Alkaline Phosphatase 55 U/L (34-104); Anion Gap 8 mmol/L (2-11); BUN/Creatinine Ratio 19.2 (8-20); Blood Urea Nitrogen 19 mg/dL (6-24); CO2 Carbon Dioxide 23 mmol/L (22-32); Calcium 8.8 mg/dL (8.6-10.3); Chloride 108 mmol/L (101-111); EGFR African American 65.5 (>60); EGFR Non-African American 54.1 (>60); Globulin 2.2 g/dL (2-4); Glucose 98 mg/dL (70-100); Sodium 139 mmol/L (135-145); Total Protein 5.6 g/dL (6.4-8.9)
[2019-06-27 12:08] LABS: Urine Appearance Clear; Urine Bacteria Absent (Absent); Urine Bilirubin Negative (Negative); Urine Blood Negative (Negative); Urine Color Yellow; Urine Glucose Negative (Negative); Urine Ketones Negative (Negative); Urine Nitrite Negative (Negative); Urine Protein 1+(30 mg/dL) (Negative); Urine Red Blood Cell Absent (Absent); Urine Specific Gravity 1.018 (1.010-1.030); Urine Urobilinogen Negative (Negative); Urine White Blood Cell Trace(0-5/hpf) (Absent)
[2019-06-27 12:18] LABS: Acetaminophen < 15 mcg/mL; Alcohol < 10 mg/dL (<10)
[2019-06-27] MEDS ORDERED: Potassium Chlor TAB* 20 MEQ TAB.ER PO ONE (12:19)
[2019-06-27 12:33] LABS: TSH (Thyroid Stimulating Horm) 2.17 mcIU/mL (0.34-5.60)
[2019-06-27 12:35] LABS: Free T4 0.88 ng/dL (0.61-1.12)
[2019-06-27 12:39] VITALS: BP 103/61
== END 2019-06-27 12:34 | disposition home or self-care (01) ==
LOC: ED 09:31
DX: F11.23 Opioid dependence with withdrawal (principal); R44.2 Other hallucinations; R68.83 Chills (without fever); E87.6 Hypokalemia; E78.00 Pure hypercholesterolemia, unspecified; K21.9 Gastro-esophageal reflux disease without esophagitis; F41.9 Anxiety disorder, unspecified; F32.9 Major depressive disorder, single episode, unspecified; Z88.0 Allergy status to penicillin; Z88.2 Allergy status to sulfonamides; Z91.041 Radiographic dye allergy status; Z79.01 Long term (current) use of anticoagulants; Z79.899 Other long term (current) drug therapy; Z95.2 Presence of prosthetic heart valve; Z87.891 Personal history of nicotine dependence
CPT/HCPCS: 36415; 80053; 80320; 80329; 81003; 81015; 84439; 84443; 85025; 87086; 93005; 99282; A9270-GY; G0480